=== PATIENT | male | born 1955 | race Caucasian/White ===

== ENCOUNTER 2016-09-23 12:34 | Observation (INO) | payer BC ==
[2016-09-23] MEDS ORDERED: SENNOSIDES 8.6 MG PO PRN (13:41)
[2016-09-23] MEDS ORDERED: Sodium Chloride 0.9% 10 ML Syringe FLUSH PRN (14:01)
[2016-09-23] MEDS ORDERED: Ondansetron 4 MG/2 ML SDV IVPUSH PRN (14:09)
--- NOTE | 2016-09-23 14:18 | PCM.HP ---
H&P History of Present Illness - General Date of Service: 09/23/16 Admit Problem/Dx: Admission Diagnosis/Problem Admission Diagnosis/Problem Weakness Source of Information: Patient, Provider (dr. Piña) - History of Present Illness Initial Comments - Free Text/Narative: the patient is a 60-year-old gentleman with a history of hypertension, diabetes on insulin. The patient has a history of metastatic lung cancer. 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 The patient has been following up with the oncology services at [facility] through. On last evaluation Dr. Deluna discussed further possible treatments with the patient. The patient opted for no further treatment for the cancer. Dr. Deluna felt that the patient expected life expectancy is less than 6 month period The patient has been living independently. Hospice was contemplated but not available at the patient's residence. In the past few weeks the patient has been getting increasingly weak, nauseous, vomiting. Has chronic back and neck pain for which she is taking Tylenol. Trying to avoid oxycodone due to side effects of constipation. The patient has called his primary care physician that he is increasingly weak cannot get up practically unable to move around in his house. He denies abdominal pain no shortness of breath no chest pain. He has minimal oral food or fluid intake. - Related Data Allergies/Adverse Reactions: Allergies Allergy/AdvReac Type Severity Reaction Status Date / Time No Known Allergies Allergy Verified 09/23/16 13:11 Home Medications: Home Meds Losartan [Cozaar] 50 mg PO DAILY 03/26/13 [History] Simvastatin [Zocor] 40 mg PO DAILY 03/26/13 [History] Ondansetron [Zofran ODT] 4 mg PO Q6H 01/19/16 [History] Sennosides [Senna] 8.6 mg PO BID PRN 01/19/16 [History] oxyCODONE HCl [Oxycodone HCl] 5 mg PO Q4H PRN 01/19/16 [History] Acetaminophen [Tylenol Extra Strength] 500 mg PO Q4H PRN 09/23/16 [History] Dexamethasone 4 mg PO BID 09/23/16 [History] Mirtazapine 15 mg PO DAILY 09/23/16 [History] Past Medical History HEENT History: Reports: Impaired Vision Other HEENT History: wears glasses Other Genitourinary History: kidney surgery for cancer Musculoskeletal History: Reports: None Neurological History: Reports: None Psychiatric History: Reports: None Endocrine/Metabolic History: Reports: Diabetes, Type II Hematologic History: Reports: None Immunologic History: Reports: None Oncologic (Cancer) History: Reports: Brain, Other (See Below) Other Oncologic History: 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 Denies: Chest Pain, Edema Gastrointestinal: Denies: Abdominal Pain Genitourinary: Denies: Dysuria Exam - Exam Exam: See Below - Vital Signs Vital Signs: Last Vital Signs Temp 36.4 C 09/23/16 13:35 Pulse 101 H 09/23/16 13:35 Resp 20 09/23/16 13:35 BP 122/91 H 09/23/16 13:35 Pulse Ox 96 09/23/16 13:35 Weight: 87.498 kg - Exam General: Alert, Oriented HEENT: Other (dry mucosa) Neck: Supple Lungs: Clear to Auscultation, Normal Respiratory Effort Cardiovascular: Regular Rate, Regular Rhythm GI/Abdominal Exam: Normal Bowel Sounds, Soft, Non-Tender Back Exam: Normal Inspection Extremities: No Pedal Edema Neuro Extensive - Mental Status: Alert, Oriented x3, Normal Cognition. No: Normal Mood/Affect (irritated) *Q Meaningful Use (ADM) - VTE *Q VTE Criteria *Q: - Stroke *Q Stroke Criteria *Q: - AMI *Q AMI Criteria *Q: - Problem List (1) Lung cancer SNOMED Code(s): 688337393 ICD Code: C34.90 - MALIGNANT NEOPLASM OF UNSP PART OF UNSP BRONCHUS OR LUNG Status: Acute Current Visit: Yes (2) Dehydration SNOMED Code(s): 51499964 ICD Code: E86.0 - DEHYDRATION Status: Acute Current Visit: Yes Problem List Initiated/Reviewed/Updated: Yes Orders Last 24hrs: Active Orders 24 hr Category Date Time Status Admission Status [Patient Status] [ADT] Routine ADT 09/23/16 13:24 Active Antiembolic Devices [RC] PER UNIT ROUTINE Care 09/23/16 14:10 Active Central Line Assessment [RC] 09,21 Care 09/23/16 14:01 Active Communication Order [RC] ROUTINE Care 09/23/16 13:48 Active Glucose [Blood Glucose Check, Bedside] [RC] QIDACANDBED Care 09/23/16 14:07 Active Implanted Port Access [RC] ASDIRECTED Care 09/23/16 13:40 Active Oxygen Therapy [RC] PRN Care 09/23/16 14:09 Active Up With Assistance [RC] ASDIRECTED Care 09/23/16 14:09 Active VTE/DVT Education [RC] PER UNIT ROUTINE Care 09/23/16 14:09 Active Vital Signs [RC] Q4H Care 09/23/16 14:09 Active OT Evaluation and Treatment [CONS] Routine Cons 09/23/16 13:30 Active PT Evaluation and Treatment [CONS] Routine Cons 09/23/16 13:30 Active Regular Diet [DIET] Diet 09/23/16 Dinner Active BASIC METABOLIC PANEL,BMP [CHEM] Routine Lab 09/23/16 13:24 Ordered C DIFFICILE TOXIN BY PCR [MREF] Routine Lab 09/23/16 13:25 Uncollected CBC WITH AUTO DIFF [HEME] Routine Lab 09/23/16 13:25 Ordered HEPATIC FUNCTION PANEL,HFP [CHEM] Routine Lab 09/23/16 13:24 Ordered LACTIC ACID [CHEM] Routine Lab 09/23/16 13:26 Ordered TROPONIN I [CHEM] Routine Lab 09/23/16 13:24 Ordered UA W/MICROSCOPIC [URIN] Routine Lab 09/23/16 14:08 Uncollected Acetaminophen [Tylenol Extra Strength] Med 09/23/16 13:41 Pending 500 mg PO Q4H PRN Dexamethasone Med 09/24/16 09:00 Pending 4 mg PO DAILY Insulin Aspart [NovoLOG] Med 09/23/16 17:00 Ordered See Protocol SUBCUT TIDAC Mirtazapine [Remeron] Med 09/24/16 09:00 Pending 15 mg PO DAILY Ondansetron [Zofran ODT] Med 09/23/16 13:45 Pending 4 mg PO Q6H Ondansetron [Zofran] Med 09/23/16 14:09 Ordered 4 mg IVPUSH Q6H PRN Sennosides [Senna] Med 09/23/16 13:41 Pending 8.6 mg PO BID PRN Sodium Chloride 0.9% [Normal Saline] 1,000 ml Med 09/23/16 14:15 Ordered IV ASDIRECTED Sodium Chloride 0.9% [Saline Flush] Med 09/23/16 14:01 Ordered 10 ml FLUSH ASDIRECTED PRN Zolpidem [Ambien] Med 09/23/16 14:09 Ordered 5 mg PO BEDTIME PRN Sequential Compression Device [OM.PC] Per Unit Routine Oth 09/23/16 14:10 Ordered Resuscitation Status Routine Resus Stat 09/23/16 14:09 Ordered Medication Orders Acetaminophen (Tylenol Extra Strength) 500 mg PO Q4H PRN PRN Reason: Pain or fever Dexamethasone (Dexamethasone) 4 mg PO DAILY [facility] Sodium Chloride (Normal Saline) 1,000 mls @ 125 mls/hr IV ASDIRECTED [facility] Insulin Aspart (Novolog) 0 unit SUBCUT TIDAC [facility] PRN Reason: Protocol Mirtazapine (Remeron) 15 mg PO DAILY [facility] Non-Formulary Medication (Sennosides [Senna]) 8.6 mg PO BID PRN PRN Reason: Constipation Ondansetron HCl (Zofran Odt) 4 mg PO Q6H [facility] Ondansetron HCl (Zofran) 4 mg IVPUSH Q6H PRN PRN Reason: Nausea/Vomiting Sodium Chloride (Saline Flush) 10 ml FLUSH ASDIRECTED PRN PRN Reason: Keep Vein Open Zolpidem Tartrate (Ambien) 5 mg PO BEDTIME PRN PRN Reason: Sleep Assessment/Plan Comment:: the patient presented with a history of advanced lung cancer with metastasis He has opted for no further therapy His strength and ability to take care of himself has been iminishing. his oral intake is minimal the patient appears clinically dehydrated I will obtain further tests including renal function and electrolytes. Check UA for possible infection.Check troponin. Start IV fluid for hydration Access the patient's port further treatment will be based on these results. Diabetes For now hold long-acting insulin Use short acting coverage depending on blood sugars and oral intake Chronic steroid use Continue dexamethasone back pain Treat with Tylenol, minimalize oxycodone use DVT prophylaxis will be subcutaneous heparin
[2016-09-23] MEDS: Sodium Chloride 0.9% 1,000 ML IV SCH ×2 (15:17→23:48)
[2016-09-23] MEDS: Ondansetron 4 MG Tab.DIS PO SCH ×2 (15:22→22:17)
[2016-09-23] MEDS: ACETAMINOPHEN 500 MG PO PRN ×2 (15:57→20:26)
[2016-09-23] MEDS: Insulin Aspart 100 Units/ML 3 ML Pen SUBCUT SCH (17:37)
[2016-09-23] MEDS ORDERED: Dexamethasone 4 MG Tab PO SCH (21:00)
[2016-09-23] MEDS: Zolpidem 5 MG Tab PO PRN (21:17)
[2016-09-23] MEDS ORDERED: oxyCODONE 5 MG Tab PO PRN (23:55)
[2016-09-24] MEDS: ACETAMINOPHEN 500 MG PO PRN ×3 (03:13→20:06)
[2016-09-24] MEDS: Ondansetron 4 MG Tab.DIS PO SCH ×4 (03:13→22:09)
[2016-09-24] MEDS: Morphine 2 MG/ML Syringe IVPUSH PRN ×4 (04:09→15:02)
[2016-09-24] MEDS: Sodium Chloride 0.9% 1,000 ML IV SCH ×3 (07:55→23:54)
[2016-09-24] MEDS: DEXAMETHASONE 4 MG PO SCH (08:16)
[2016-09-24] MEDS: Insulin Aspart 100 Units/ML 3 ML Pen SUBCUT SCH ×3 (08:19→17:22)
[2016-09-24] MEDS ORDERED: Ibuprofen 400 MG Tab PO PRN (10:11)
--- NOTE | 2016-09-24 10:16 | PCM.PN ---
- General Info Date of Service: 09/24/16 Admission Dx/Problem (Free Text): Admission Diagnosis/Problem Admission Diagnosis/Problem Weakness Subjective Update: Has been complaining of moderate to severe back pain. Mostly upper back. Changing position makes it better. No associated upper and lower extremity tingling or numbness. Nausea is better, has been able to eat. No fever, no chills, chest pain, abdominal pain. No shortness of breath. - Review of Systems General: Reports: Weakness - Patient Data Vitals - Most Recent: Last Vital Signs Temp 37.0 C 09/24/16 08:46 Pulse 76 09/24/16 08:46 Resp 20 09/24/16 08:46 BP 134/90 09/24/16 08:46 Pulse Ox 98 09/24/16 08:46 Weight - Most Recent: 87.498 kg I&O - Last 24 Hours: Intake & Output 09/23/16 09/24/16 09/24/16 22:59 06:59 14:59 Intake Total 1010 500 Output Total 500 Balance 1010 0 Lab Results Last 24 Hours: Laboratory Results - last 24 hr 09/23/16 09/23/16 09/23/16 Range/Units 14:18 14:18 14:18 WBC 7.8 (5.0-10.0) 10^3/uL RBC 4.95 (4.6-6.2) 10^6/uL Hgb 14.8 (14.0-18.0) g/dL Hct 43.0 (40.0-54.0) % MCV 86.9 (80-100) fL MCH 29.9 (27.0-34.0) pg MCHC 34.4 (33.0-35.0) g/dL Plt Count 288 (150-450) 10^3/uL Neut % (Auto) 76.2 H (42.2-75.2) % Lymph % (Auto) 11.2 L (20.5-50.1) % Barbour % (Auto) 11.2 H (2-8) % Eos % (Auto) 1.0 (1.0-3.0) % Baso % (Auto) 0.4 (0.0-1.0) % Sodium 133 L (135-145) mmol/L Potassium 4.6 (3.6-5.0) mmol/L Chloride 99 L (101-111) mmol/L Carbon Dioxide 20.0 L (21.0-31.0) mmol/L Anion Gap 18.6 BUN 33 H (7-18) mg/dL Creatinine 1.3 (0.6-1.3) mg/dL Est Cr Clr Drug Dosing 64.67 mL/min Estimated GFR (MDRD) 56 Glucose 142 H (74-105) mg/dL POC Glucose (70-105) mg/dl Lactic Acid 0.9 (0.5-2.2) mmol/L Calcium 9.5 (8.4-10.2) mg/dl Total Bilirubin 2.9 H (0.2-1.0) mg/dL Direct Bilirubin 0.6 H (0.0-0.2) mg/dL Indirect Bilirubin 2.3 AST 29 (10-42) IU/L ALT 57 (10-60) IU/L Alkaline Phosphatase 65 (42-121) IU/L Troponin I 0.02 (0.00-0.02) ng/ml Total Protein 7.2 (6.7-8.2) g/dl Albumin 4.0 (3.2-5.5) g/dl Globulin 3.2 Albumin/Globulin Ratio 1.25 Urine Color (YELLOW) Urine Appearance (CLEAR) Urine pH (5.0-9.0) Ur Specific Davis (1.005-1.030) Urine Protein (NEGATIVE) Urine Glucose (UA) (NEGATIVE) Urine Ketones (NEGATIVE) Urine Occult Blood (NEGATIVE) Urine Nitrite (NEGATIVE) Urine Bilirubin (NEGATIVE) Urine Urobilinogen (0.2-1.0) mg/dL Ur Leukocyte Esterase (NEGATIVE) Urine RBC /HPF Urine WBC (0-5/HPF) /HPF Ur Epithelial Cells /HPF Urine Bacteria (0-FEW/HPF) /HPF Urine Mucus /LPF 09/23/16 09/23/16 09/24/16 Range/Units 16:52 21:05 03:00 WBC (5.0-10.0) 10^3/uL RBC (4.6-6.2) 10^6/uL Hgb (14.0-18.0) g/dL Hct (40.0-54.0) % MCV (80-100) fL MCH (27.0-34.0) pg MCHC (33.0-35.0) g/dL Plt Count (150-450) 10^3/uL Neut % (Auto) (42.2-75.2) % Lymph % (Auto) (20.5-50.1) % Barbour % (Auto) (2-8) % Eos % (Auto) (1.0-3.0) % Baso % (Auto) (0.0-1.0) % Sodium (135-145) mmol/L Potassium (3.6-5.0) mmol/L Chloride (101-111) mmol/L Carbon Dioxide (21.0-31.0) mmol/L Anion Gap BUN (7-18) mg/dL Creatinine (0.6-1.3) mg/dL Est Cr Clr Drug Dosing mL/min Estimated GFR (MDRD) Glucose (74-105) mg/dL POC Glucose 126 H 208 H (70-105) mg/dl Lactic Acid (0.5-2.2) mmol/L Calcium (8.4-10.2) mg/dl Total Bilirubin (0.2-1.0) mg/dL Direct Bilirubin (0.0-0.2) mg/dL Indirect Bilirubin AST (10-42) IU/L ALT (10-60) IU/L Alkaline Phosphatase (42-121) IU/L Troponin I (0.00-0.02) ng/ml Total Protein (6.7-8.2) g/dl Albumin (3.2-5.5) g/dl Globulin Albumin/Globulin Ratio Urine Color Yellow (YELLOW) Urine Appearance Clear (CLEAR) Urine pH 5.5 (5.0-9.0) Ur Specific Davis 1.015 (1.005-1.030) Urine Protein Negative (NEGATIVE) Urine Glucose (UA) Negative (NEGATIVE) Urine Ketones Negative (NEGATIVE) Urine Occult Blood Negative (NEGATIVE) Urine Nitrite Negative (NEGATIVE) Urine Bilirubin Negative (NEGATIVE) Urine Urobilinogen 1.0 (0.2-1.0) mg/dL Ur Leukocyte Esterase Negative (NEGATIVE) Urine RBC 0-5 /HPF Urine WBC 0-5 (0-5/HPF) /HPF Ur Epithelial Cells Rare /HPF Urine Bacteria Rare (0-FEW/HPF) /HPF Urine Mucus Rare /LPF 09/24/16 Range/Units 08:00 WBC (5.0-10.0) 10^3/uL RBC (4.6-6.2) 10^6/uL Hgb (14.0-18.0) g/dL Hct (40.0-54.0) % MCV (80-100) fL MCH (27.0-34.0) pg MCHC (33.0-35.0) g/dL Plt Count (150-450) 10^3/uL Neut % (Auto) (42.2-75.2) % Lymph % (Auto) (20.5-50.1) % Barbour % (Auto) (2-8) % Eos % (Auto) (1.0-3.0) % Baso % (Auto) (0.0-1.0) % Sodium (135-145) mmol/L Potassium (3.6-5.0) mmol/L Chloride (101-111) mmol/L Carbon Dioxide (21.0-31.0) mmol/L Anion Gap BUN (7-18) mg/dL Creatinine (0.6-1.3) mg/dL Est Cr Clr Drug Dosing mL/min Estimated GFR (MDRD) Glucose (74-105) mg/dL POC Glucose 171 H (70-105) mg/dl Lactic Acid (0.5-2.2) mmol/L Calcium (8.4-10.2) mg/dl Total Bilirubin (0.2-1.0) mg/dL Direct Bilirubin (0.0-0.2) mg/dL Indirect Bilirubin AST (10-42) IU/L ALT (10-60) IU/L Alkaline Phosphatase (42-121) IU/L Troponin I (0.00-0.02) ng/ml Total Protein (6.7-8.2) g/dl Albumin (3.2-5.5) g/dl Globulin Albumin/Globulin Ratio Urine Color (YELLOW) Urine Appearance (CLEAR) Urine pH (5.0-9.0) Ur Specific Davis (1.005-1.030) Urine Protein (NEGATIVE) Urine Glucose (UA) (NEGATIVE) Urine Ketones (NEGATIVE) Urine Occult Blood (NEGATIVE) Urine Nitrite (NEGATIVE) Urine Bilirubin (NEGATIVE) Urine Urobilinogen (0.2-1.0) mg/dL Ur Leukocyte Esterase (NEGATIVE) Urine RBC /HPF Urine WBC (0-5/HPF) /HPF Ur Epithelial Cells /HPF Urine Bacteria (0-FEW/HPF) /HPF Urine Mucus /LPF Med Orders - Current: Current Medications Acetaminophen (Tylenol Extra Strength) 500 mg PO Q4H PRN PRN Reason: Pain or fever Last Admin: 09/24/16 09:13 Dose: 500 mg Dexamethasone (Dexamethasone) 4 mg PO WITHBREAKFAST [facility] Last Admin: 09/24/16 08:16 Dose: 4 mg Sodium Chloride (Normal Saline) 1,000 mls @ 125 mls/hr IV ASDIRECTED [facility] Last Admin: 09/24/16 07:55 Dose: 125 mls/hr Ibuprofen (Motrin) 400 mg PO Q6H PRN PRN Reason: Pain Insulin Aspart (Novolog) 0 unit SUBCUT TIDAC [facility] PRN Reason: Protocol Last Admin: 09/24/16 08:19 Dose: 2 unit Lactulose (Cephulac) 20 gm PO BID PRN PRN Reason: Constipation Mirtazapine (Remeron) 15 mg PO BEDTIME [facility] Morphine Sulfate (Morphine) 1 mg IVPUSH Q2H PRN PRN Reason: Pain Last Admin: 09/24/16 08:10 Dose: 1 mg Non-Formulary Medication (Sennosides [Senna]) 8.6 mg PO BID [facility] Ondansetron HCl (Zofran Odt) 4 mg PO Q6H [facility] Last Admin: 09/24/16 09:30 Dose: 4 mg Ondansetron HCl (Zofran) 4 mg IVPUSH Q6H PRN PRN Reason: Nausea/Vomiting Polyethylene Glycol (Miralax) 17 gm PO DAILY [facility] Sodium Chloride (Saline Flush) 10 ml FLUSH ASDIRECTED PRN PRN Reason: Keep Vein Open Tramadol HCl (Ultram) 50 mg PO Q6H PRN PRN Reason: mod to severe pain Zolpidem Tartrate (Ambien) 5 mg PO BEDTIME PRN PRN Reason: Sleep Last Admin: 09/23/16 21:17 Dose: 5 mg Discontinued Medications Dexamethasone (Dexamethasone) 4 mg PO BID [facility] Patients Own Med (Sennosides [Senna] 8.6 Mg) 8.6 mg PO BID PRN PRN Reason: Constipation Oxycodone HCl (Oxycodone) 5 mg PO Q6H PRN PRN Reason: Pain Last Admin: 09/24/16 00:18 Dose: 5 mg - Exam General: Alert, Oriented Neck: Supple Lungs: Clear to Auscultation, Normal Respiratory Effort Cardiovascular: Regular Rate, Regular Rhythm Extremities: Normal Inspection - Problem List & Annotations (1) Lung cancer SNOMED Code(s): 508922085 Code(s): C34.90 - MALIGNANT NEOPLASM OF UNSP PART OF UNSP BRONCHUS OR LUNG Status: Acute Current Visit: Yes (2) Dehydration SNOMED Code(s): 91248947 Code(s): E86.0 - DEHYDRATION Status: Acute Current Visit: Yes - Problem List Review Problem List Initiated/Reviewed/Updated: Yes - My Orders Last 24 Hours: My Active Orders 09/23/16 13:24 Admission Status [Patient Status] [ADT] Routine 09/23/16 13:30 OT Evaluation and Treatment [CONS] Routine PT Evaluation and Treatment [CONS] Routine 09/23/16 13:40 Implanted Port Access [RC] ASDIRECTED 09/23/16 13:41 Acetaminophen [Tylenol Extra Strength] 500 mg PO Q4H PRN 09/23/16 13:48 Communication Order [RC] 08,09/23/16 14:01 Central Line Assessment [RC] , Sodium Chloride 0.9% [Saline Flush] 10 ml FLUSH ASDIRECTED PRN 09/23/16 14:07 Glucose [Blood Glucose Check, Bedside] [RC] QIDACANDBED 09/23/16 14:09 Oxygen Therapy [RC] PRN Up With Assistance [RC] ASDIRECTED VTE/DVT Education [RC] PER UNIT ROUTINE Vital Signs [RC] Q4H Ondansetron [Zofran] 4 mg IVPUSH Q6H PRN Zolpidem [Ambien] 5 mg PO BEDTIME PRN Resuscitation Status Routine 09/23/16 14:10 Antiembolic Devices [RC] PER UNIT ROUTINE Sequential Compression Device [OM.PC] Per Unit Routine 09/23/16 14:15 Sodium Chloride 0.9% [Normal Saline] 1,000 ml IV ASDIRECTED 09/23/16 16:00 Ondansetron [Zofran ODT] 4 mg PO Q6H 09/23/16 17:00 Insulin Aspart [NovoLOG] See Protocol SUBCUT TIDAC 09/23/16 19:33 Cooling Warming Measures [RC] ASDIRECTED K Pad [Heat Therapy] [OM.PC] Routine 09/23/16 Dinner Regular Diet [DIET] 09/24/16 03:45 Morphine 1 mg IVPUSH Q2H PRN 09/24/16 08:00 Dexamethasone 4 mg PO WITHBREAKFAST 09/24/16 10:10 traMADol [Ultram] 50 mg PO Q6H PRN 09/24/16 10:11 Ibuprofen [Motrin] 400 mg PO Q6H PRN 09/24/16 10:12 Lactulose [Cephulac] 20 gm PO BID PRN 09/24/16 10:15 Polyethylene Glycol 3350 [MiraLAX] 17 gm PO DAILY 09/24/16 21:00 Mirtazapine [Remeron] 15 mg PO BEDTIME Sennosides [Senna] 8.6 mg PO BID - Plan Plan:: the patient presented with a history of advanced lung cancer with metastasis He has opted for no further therapy His strength and ability to take care of himself has been diminishing. his oral intake has minimal Has been receiving IV hydration. Nausea is better. Has better oral intake. Encourage physical activity. Discussed with the patient about the discharge plans. he might not be able to live independently. Diabetes For now hold long-acting insulin Use short acting coverage depending on blood sugars and oral intake Chronic steroid use Continue dexamethasone back pain Treat with Tylenol, minimalize oxycodone use Try Motrin, tramadol Stool softeners for prevention of constipation DVT prophylaxis will be subcutaneous heparin
[2016-09-24] MEDS: Lactulose Soln 10 GM/15 ML 30 ML UD Cup PO PRN (11:38)
[2016-09-24] MEDS: Polyethylene Glycol 3350 Powder 17 GM Packet PO SCH (11:44)
[2016-09-24] MEDS: traMADol 50 MG Tab PO PRN (14:32)
[2016-09-24] MEDS: MIRTAZAPINE 15 MG PO SCH (20:54)
[2016-09-24] MEDS: SENNA PO SCH (22:09)
[2016-09-24] MEDS: Zolpidem 5 MG Tab PO PRN (23:51)
[2016-09-25] MEDS: ACETAMINOPHEN 500 MG PO PRN ×4 (04:09→18:47)
[2016-09-25] MEDS: Ondansetron 4 MG Tab.DIS PO SCH ×4 (04:10→21:47)
[2016-09-25] MEDS: SENNA PO SCH ×2 (08:51→21:50)
[2016-09-25] MEDS: DEXAMETHASONE 4 MG PO SCH (08:52)
[2016-09-25] MEDS: Insulin Aspart 100 Units/ML 3 ML Pen SUBCUT SCH ×3 (08:53→17:21)
[2016-09-25] MEDS: Polyethylene Glycol 3350 Powder 17 GM Packet PO SCH (08:53)
--- NOTE | 2016-09-25 11:12 | PCM.PN ---
- General Info Date of Service: 09/25/16 Admission Dx/Problem (Free Text): Admission Diagnosis/Problem Admission Diagnosis/Problem Weakness Subjective Update: Has been complaining of moderate to severe back pain. Mostly upper back, alittle to the left side. Changing position makes it better. No associated upper and lower extremity tingling or numbness. Does not want to take other pain medications than Tylenol. Nausea is better, has been able to eat. No fever, no chills, chest pain, abdominal pain. No shortness of breath. Functional Status: Reports: Tolerating Diet - Review of Systems General: Reports: Weakness. Denies: Fever Cardiovascular: Denies: Chest Pain Gastrointestinal: Denies: Abdominal Pain Genitourinary: Denies: Dysuria - Patient Data Vitals - Most Recent: Last Vital Signs Temp 37.2 C 09/25/16 08:34 Pulse 88 09/25/16 08:34 Resp 20 09/25/16 08:34 BP 138/77 09/25/16 08:34 Pulse Ox 98 09/25/16 08:34 Weight - Most Recent: 87.498 kg I&O - Last 24 Hours: Intake & Output 09/24/16 09/25/16 09/25/16 22:59 06:59 14:59 Intake Total 1200 1514 Balance 1200 1514 Lab Results Last 24 Hours: Laboratory Results - last 24 hr 09/24/16 09/24/16 09/24/16 Range/Units 11:16 16:43 20:52 POC Glucose 194 H 213 H 150 H (70-105) mg/dl 09/25/16 Range/Units 07:58 POC Glucose 129 H (70-105) mg/dl Med Orders - Current: Current Medications Acetaminophen (Tylenol Extra Strength) 500 mg PO Q4H PRN PRN Reason: Pain or fever Last Admin: 09/25/16 08:52 Dose: 500 mg Dexamethasone (Dexamethasone) 4 mg PO WITHBREAKFAST [facility] Last Admin: 09/25/16 08:52 Dose: 4 mg Heparin Sodium (Porcine) (Heparin Sodium) 5,000 units SUBCUT Q8HR [facility] Ibuprofen (Motrin) 400 mg PO Q6H PRN PRN Reason: Pain Last Admin: 09/24/16 11:38 Dose: 400 mg Insulin Aspart (Novolog) 0 unit SUBCUT TIDAC [facility] PRN Reason: Protocol Last Admin: 09/25/16 08:53 Dose: Not Given Lactulose (Cephulac) 20 gm PO BID PRN PRN Reason: Constipation Last Admin: 09/24/16 11:38 Dose: 20 gm Mirtazapine (Remeron) 15 mg PO BEDTIME [facility] Last Admin: 09/24/16 20:54 Dose: 15 mg Morphine Sulfate (Morphine) 1 mg IVPUSH Q2H PRN PRN Reason: Pain Last Admin: 09/24/16 15:02 Dose: 1 mg Senna Own Med 8.6 mg PO BID [facility] Last Admin: 09/25/16 08:51 Dose: 8.6 mg Ondansetron HCl (Zofran Odt) 4 mg PO Q6H [facility] Last Admin: 09/25/16 04:10 Dose: 4 mg Ondansetron HCl (Zofran) 4 mg IVPUSH Q6H PRN PRN Reason: Nausea/Vomiting Polyethylene Glycol (Miralax) 17 gm PO DAILY [facility] Last Admin: 09/25/16 08:53 Dose: 17 gm Sodium Chloride (Saline Flush) 10 ml FLUSH ASDIRECTED PRN PRN Reason: Keep Vein Open Tramadol HCl (Ultram) 50 mg PO Q6H PRN PRN Reason: mod to severe pain Last Admin: 09/24/16 14:32 Dose: 50 mg Zolpidem Tartrate (Ambien) 5 mg PO BEDTIME PRN PRN Reason: Sleep Last Admin: 09/24/16 23:51 Dose: 5 mg Discontinued Medications Dexamethasone (Dexamethasone) 4 mg PO BID [facility] Sodium Chloride (Normal Saline) 1,000 mls @ 125 mls/hr IV ASDIRECTED [facility] Last Admin: 09/24/16 23:54 Dose: 125 mls/hr Patients Own Med (Sennosides [Senna] 8.6 Mg) 8.6 mg PO BID PRN PRN Reason: Constipation Last Admin: 09/24/16 20:54 Dose: 8.6 mg Oxycodone HCl (Oxycodone) 5 mg PO Q6H PRN PRN Reason: Pain Last Admin: 09/24/16 00:18 Dose: 5 mg - Exam General: Alert, Oriented Neck: Supple Lungs: Clear to Auscultation, Normal Respiratory Effort Cardiovascular: Regular Rate, Regular Rhythm Extremities: No Pedal Edema Skin: Warm, Dry Neurological: No New Focal Deficit Psy/Mental Status: Alert, Normal Affect, Normal Mood - Problem List & Annotations (1) Lung cancer SNOMED Code(s): 034307434 Code(s): C34.90 - MALIGNANT NEOPLASM OF UNSP PART OF UNSP BRONCHUS OR LUNG Status: Acute Current Visit: Yes (2) Dehydration SNOMED Code(s): 49460678 Code(s): E86.0 - DEHYDRATION Status: Acute Current Visit: Yes - Problem List Review Problem List Initiated/Reviewed/Updated: Yes - My Orders Last 24 Hours: My Active Orders 09/24/16 10:10 traMADol [Ultram] 50 mg PO Q6H PRN 09/24/16 10:11 Ibuprofen [Motrin] 400 mg PO Q6H PRN 09/24/16 10:12 Lactulose [Cephulac] 20 gm PO BID PRN 09/24/16 10:15 Polyethylene Glycol 3350 [MiraLAX] 17 gm PO DAILY 09/24/16 21:00 Mirtazapine [Remeron] 15 mg PO BEDTIME Sennosides [Senna] 8.6 mg PO BID 09/25/16 08:56 Antiembolic Devices [RC] PER UNIT ROUTINE MO[facility] Hose [Antiembolic Hose] [OM.PC] Routine 09/25/16 14:00 Heparin Sodium 5,000 units SUBCUT Q8HR - Plan Plan:: the patient presented with a history of advanced lung cancer with metastasis He has opted for no further therapy His strength and ability to take care of himself has been diminishing. his oral intake was minimal at home, now improved He is also able to get out of bed and go to the bathroom back and forth alone. Encourage further activity today Has been receiving IV hydration. Nausea is better. Has better oral intake. Stop IV hydration Encourage physical activity. Discussed with the patient about the discharge plans. he might not be able to live independently. Diabetes Reasonably controlled without baseline insulin For now hold long-acting insulin Use short acting coverage depending on blood sugars and oral intake Chronic steroid use Continue dexamethasone back pain Treat with Tylenol, minimalize narcotic use Try Motrin Stool softeners for prevention of constipation DVT prophylaxis will be subcutaneous heparin
[2016-09-25] MEDS ORDERED: Sodium Chloride 0.9% 10 ML Syringe FLUSH PRN (11:44)
[2016-09-25] MEDS: Heparin Sodium 5,000 Units/ML Vial SUBCUT SCH ×2 (14:58→21:47)
[2016-09-25] MEDS ORDERED: guaiFENesin 100 MG/5 ML Soln 5 ML UD Cup PO PRN (15:58)
[2016-09-25] MEDS: Lactulose Soln 10 GM/15 ML 30 ML UD Cup PO PRN (18:48)
[2016-09-25] MEDS: MIRTAZAPINE 15 MG PO SCH (21:47)
[2016-09-25] MEDS: Sodium Chloride 0.9% 10 ML Syringe FLUSH SCH (21:48)
[2016-09-25] MEDS: traMADol 50 MG Tab PO PRN (21:56)
[2016-09-25] MEDS: Zolpidem 5 MG Tab PO PRN (22:11)
[2016-09-26] MEDS: Ondansetron 4 MG Tab.DIS PO SCH ×3 (04:10→15:46)
[2016-09-26] MEDS: Heparin Sodium 5,000 Units/ML Vial SUBCUT SCH ×2 (06:43→15:47)
[2016-09-26] MEDS: traMADol 50 MG Tab PO PRN (06:50)
[2016-09-26] MEDS: Insulin Aspart 100 Units/ML 3 ML Pen SUBCUT SCH ×3 (08:27→17:07)
[2016-09-26] MEDS: Polyethylene Glycol 3350 Powder 17 GM Packet PO SCH (08:37)
[2016-09-26] MEDS: DEXAMETHASONE 4 MG PO SCH (08:38)
[2016-09-26] MEDS: SENNA PO SCH (08:39)
[2016-09-26] MEDS: ACETAMINOPHEN 500 MG PO PRN ×3 (08:40→16:42)
[2016-09-26] MEDS: Sodium Chloride 0.9% 10 ML Syringe FLUSH SCH ×2 (11:27→15:47)
[2016-09-26 11:40] VITALS: BP 136/90
--- NOTE | 2016-09-26 12:42 | PCM.DCSUM1 ---
Discharge Summary - Hospital Course Free Text/Narrative:: the patient presented with a history of advanced lung cancer with metastasis He has opted for no further therapy His strength and ability to take care of himself has been diminishing. his oral intake was minimal at home, now improved He is also able to get out of bed and go to the bathroom back and forth alone. Encourage further activity today acute dehydration Has been receiving IV hydration. Nausea is better. Has better oral intake. Encourage physical activity. Diabetes Reasonably controlled without baseline insulin For now hold long-acting insulin Chronic steroid use Continue dexamethasone back pain Treat with Tylenol, minimalize narcotic use Try Motrin Stool softeners for prevention of constipation - Discharge Data Discharge Date: 09/26/16 Discharge Disposition: Home, Self-Care 01 Condition: Good - Discharge Diagnosis/Problem(s) (1) Lung cancer SNOMED Code(s): 094126786 ICD Code: C34.90 - MALIGNANT NEOPLASM OF UNSP PART OF UNSP BRONCHUS OR LUNG Status: Acute Current Visit: Yes (2) Dehydration SNOMED Code(s): 29337982 ICD Code: E86.0 - DEHYDRATION Status: Acute Current Visit: Yes - Patient Summary/Data Consults: Consultations 09/23/16 13:30 OT Evaluation and Treatment [CONS] Routine PT Evaluation and Treatment [CONS] Routine - Patient Instructions Diet: Usual Diet as Tolerated Activity: As Tolerated - Discharge Plan Home Medications: Home Meds Losartan [Cozaar] 50 mg PO DAILY 03/26/13 [History] Ondansetron [Zofran ODT] 4 mg PO Q6H 01/19/16 [History] Sennosides [Senna] 8.6 mg PO BID PRN 01/19/16 [History] oxyCODONE HCl [Oxycodone HCl] 5 mg PO Q4H PRN 01/19/16 [History] Acetaminophen [Tylenol Extra Strength] 500 mg PO Q4H PRN 09/23/16 [History] Mirtazapine 15 mg PO DAILY 09/23/16 [History] Dexamethasone 4 mg PO DAILY #0 09/26/16 [Rx] Patient Handouts: High-Fiber Diet, Constipation, Adult, [id number], Dehydration, Adult, [id number], Lung Cancer Referrals: Jer Piña MD [Primary Care Provider] - (in 3-5 days) - Review of Systems General: Reports: Weakness (improved) Pulmonary: Denies: Shortness of Breath Cardiovascular: Denies: Chest Pain Musculoskeletal: Reports: Back Pain Neurological: Denies: Confusion Psychiatric: Denies: Confusion - Patient Data Vitals - Most Recent: Last Vital Signs Temp 36.9 C 09/26/16 11:39 Pulse 83 09/26/16 11:39 Resp 20 09/26/16 11:39 BP 136/90 09/26/16 11:39 Pulse Ox 95 09/26/16 11:39 Weight - Most Recent: 87.498 kg I&O - Last 24 hours: Intake & Output 09/25/16 09/26/16 09/26/16 22:59 06:59 14:59 Intake Total 320 Balance 320 Lab Results - Last 24 hrs: Laboratory Results - last 24 hr 09/25/16 09/25/16 09/26/16 Range/Units 17:00 20:56 08:14 POC Glucose 209 H 147 H 126 H (70-105) mg/dl 09/26/16 Range/Units 11:26 POC Glucose 187 H (70-105) mg/dl Med Orders - Current: Current Medications Acetaminophen (Tylenol Extra Strength) 500 mg PO Q4H PRN PRN Reason: Pain or fever Last Admin: 09/26/16 12:33 Dose: 500 mg Dexamethasone (Dexamethasone) 4 mg PO WITHBREAKFAST [facility] Last Admin: 09/26/16 08:38 Dose: 4 mg Guaifenesin (Robitussin) 200 mg PO Q6H PRN PRN Reason: Cough Last Admin: 09/25/16 18:49 Dose: 200 mg Heparin Sodium (Porcine) (Heparin Sodium) 5,000 units SUBCUT Q8HR [facility] Last Admin: 09/26/16 06:43 Dose: 5,000 units Ibuprofen (Motrin) 400 mg PO Q6H PRN PRN Reason: Pain Last Admin: 09/24/16 11:38 Dose: 400 mg Insulin Aspart (Novolog) 0 unit SUBCUT TIDAC [facility] PRN Reason: Protocol Last Admin: 09/26/16 12:32 Dose: 2 unit Lactulose (Cephulac) 20 gm PO BID PRN PRN Reason: Constipation Last Admin: 09/25/16 18:48 Dose: 20 gm Mirtazapine (Remeron) 15 mg PO BEDTIME [facility] Last Admin: 09/25/16 21:47 Dose: 15 mg Morphine Sulfate (Morphine) 1 mg IVPUSH Q2H PRN PRN Reason: Pain Last Admin: 09/24/16 15:02 Dose: 1 mg Senna Own Med 8.6 mg PO BID [facility] Last Admin: 09/26/16 08:39 Dose: 8.6 mg Ondansetron HCl (Zofran Odt) 4 mg PO Q6H [facility] Last Admin: 09/26/16 11:27 Dose: 4 mg Ondansetron HCl (Zofran) 4 mg IVPUSH Q6H PRN PRN Reason: Nausea/Vomiting Polyethylene Glycol (Miralax) 17 gm PO DAILY [facility] Last Admin: 09/26/16 08:37 Dose: 17 gm Sodium Chloride (Saline Flush) 10 ml FLUSH BID [facility] Last Admin: 09/26/16 11:27 Dose: 10 ml Sodium Chloride (Saline Flush) 10 ml FLUSH ASDIRECTED PRN PRN Reason: Keep Vein Open Tramadol HCl (Ultram) 50 mg PO Q6H PRN PRN Reason: mod to severe pain Last Admin: 09/26/16 06:50 Dose: 50 mg Zolpidem Tartrate (Ambien) 5 mg PO BEDTIME PRN PRN Reason: Sleep Last Admin: 09/25/16 22:11 Dose: 5 mg Discontinued Medications Dexamethasone (Dexamethasone) 4 mg PO BID [facility] Sodium Chloride (Normal Saline) 1,000 mls @ 125 mls/hr IV ASDIRECTED [facility] Last Admin: 09/24/16 23:54 Dose: 125 mls/hr Patients Own Med (Sennosides [Senna] 8.6 Mg) 8.6 mg PO BID PRN PRN Reason: Constipation Last Admin: 09/24/16 20:54 Dose: 8.6 mg Oxycodone HCl (Oxycodone) 5 mg PO Q6H PRN PRN Reason: Pain Last Admin: 09/24/16 00:18 Dose: 5 mg Sodium Chloride (Saline Flush) 10 ml FLUSH ASDIRECTED PRN PRN Reason: Keep Vein Open - Exam General: Reports: Alert, Oriented Neck: Reports: Supple Lungs: Reports: Clear to Auscultation, Normal Respiratory Effort Cardiovascular: Reports: Regular Rate, Regular Rhythm Extremities: No Pedal Edema Skin: Reports: Warm, Dry Neurological: Reports: No New Focal Deficit Psy/Mental Status: Reports: Alert *Q Meaningful Use (DIS) - VTE *Q VTE Criteria *Q: - Stroke *Q Stroke Criteria *Q: - AMI *Q AMI Criteria *Q:
== END 2016-09-26 17:00 | disposition home or self-care (01) ==
LOC: DL.MS 13:24 → PREINTOOBSV 13:33
PROVIDERS: ADMIT Internal Medicine; ATTEND Internal Medicine
DX: C34.90 Malignant neoplasm of unspecified part of unspecified bronchus or lung (principal); E86.0 Dehydration; E11.9 Type 2 diabetes mellitus without complications; Z79.84 Long term (current) use of oral hypoglycemic drugs; Z79.899 Other long term (current) drug therapy
CPT/HCPCS: 36415; 80048; 80076; 81001; 82962; 83605; 84484; 85025; A9270; J1642; J1644; J1815; J2270; J7030; J7050; J8540; 96361; 96372; 96374; 96376; G0378; G0379

== ENCOUNTER 2016-10-04 14:44 | Inpatient (IN) | payer BC ==
[2016-10-04] MEDS ORDERED: Sodium Chloride 0.9% 1,000 ML IV ONE (15:13)
[2016-10-04] MEDS ORDERED: Ondansetron 4 MG/2 ML SDV IV ONE ×2 (15:18→20:15)
--- NOTE | 2016-10-04 15:26 | EDM.PDOC ---
ED HPI GENERAL MEDICAL PROBLEM - General Stated Complaint: dehydrated. Time Seen by Provider: 10/04/16 15:15 Source of Information: Reports: Patient History Limitations: Reports: No Limitations - History of Present Illness INITIAL COMMENTS - FREE TEXT/NARRATIVE: This 61 yo male patient report to the ED due to continued feelings of weakness. The patient reports he has not been able to eat or drink in about 1 week. The patient reports every time he eats he gets nauseated and vomits. The patient reports he has noticed increased abdominal pain over the past 2 days. The patient has a history of cancer that has metastasized "everywhere". The patient has been staying at home with family. The patient was being treated by Dr. Deluna for cancer, but all treatments have been discontinued. The patient reports he as less than 6 months of life expectancy. Onset: Gradual Duration: Day(s):, Constant, Getting Worse Location: Reports: Abdomen (pain), Generalized (weakness) Quality: Reports: Ache, Dull Severity: Severe Improves with: Reports: None Worsens with: Reports: None Associated Symptoms: Reports: Nausea/Vomiting, Weakness, Other (abdominal pain) Upper Abdominal Pain Score (Numeric/FACES): 5 - Related Data Allergies Allergy/AdvReac Type Severity Reaction Status Date / Time No Known Allergies Allergy Verified 10/04/16 15:04 Home Meds: Home Meds Losartan [Cozaar] 50 mg PO DAILY 03/26/13 [History] Sennosides [Senna] 8.6 mg PO BID PRN 01/19/16 [History] oxyCODONE HCl [Oxycodone HCl] 5 mg PO Q4H PRN 01/19/16 [History] Acetaminophen [Tylenol Extra Strength] 500 mg PO Q4H PRN 09/23/16 [History] Mirtazapine 15 mg PO DAILY 09/23/16 [History] Dexamethasone 4 mg PO DAILY #0 09/26/16 [Rx] Ondansetron [Zofran ODT] 4 mg PO Q6H #30 tab.dis 09/26/16 [Rx] Past Medical History HEENT History: Reports: Impaired Vision Other HEENT History: wears glasses Cardiovascular History: Reports: None Gastrointestinal History: Reports: None Other Genitourinary History: kidney surgery for cancer Musculoskeletal History: Reports: None Neurological History: Reports: None Psychiatric History: Reports: None Endocrine/Metabolic History: Reports: Diabetes, Type II Hematologic History: Reports: None Immunologic History: Reports: None Oncologic (Cancer) History: Reports: Brain, Other (See Below) Other Oncologic History: 2 cancerous brain toumors removed 01/11/16 Dermatologic History: Reports: None - Infectious Disease History Infectious Disease History: Reports: None - Past Surgical History HEENT Surgical History: Reports: None Cardiovascular Surgical History: Reports: None GI Surgical History: Reports: Colonoscopy Neurological Surgical History: Reports: Other (See Below) Other Neurological Surgeries/Procedures: tumor removal from brain Musculoskeletal Surgical History: Reports: Other (See Below) Other Musculoskeletal Surgeries/Procedures:: knees after an accident at 14years of age Oncologic Surgical History: Reports: Other (See Below) Other Oncologic Surgeries/Procedures: cancerous brain tumors removed 01/11/16 Dermatological Surgical History: Reports: None Social & Family History - Family History Family Medical History: Noncontributory - Tobacco Use Smoking Status *Q: Never Smoker Years of Tobacco use: 50 Used Tobacco, but Quit: Yes Month Tobacco Last Used: december Second Hand Smoke Exposure: Yes - Caffeine Use Caffeine Use: Reports: Coffee - Alcohol Use Days Per Week of Alcohol Use: 0 - Recreational Drug Use Recreational Drug Use: No ED ROS GENERAL - Review of Systems Review Of Systems: ROS reveals no pertinent complaints other than HPI. ED EXAM, GENERAL - Physical Exam Exam: See Below Exam Limited By: No Limitations General Appearance: Alert, WD/WN, Moderate Distress, Thin Eye Exam: Bilateral Eye: EOMI, Normal Inspection, PERRL Ears: Normal External Exam, Normal Canal, Hearing Grossly Normal, Normal TMs Nose: Normal Inspection, Normal Mucosa, No Blood Throat/Mouth: Normal Inspection, Normal Lips, Normal Teeth, Normal Gums, Normal Oropharynx, Normal Voice, No Airway Compromise Head: Atraumatic, Normocephalic Neck: Normal Inspection, Supple, Non-Tender, Full Range of Motion Respiratory/Chest: No Respiratory Distress, Lungs Clear, Normal Breath Sounds, No Accessory Muscle Use, Chest Non-Tender Cardiovascular: Normal Peripheral Pulses, Regular Rate, Rhythm, No Edema, No Gallop, No JVD, No Murmur, No Rub GI/Abdominal: Normal Bowel Sounds, Tender (diffuse upper abdomen) (Male) Exam: Deferred Rectal (Males) Exam: Deferred Back Exam: Normal Inspection, Full Range of Motion, NT Extremities: Normal Inspection, Normal Range of Motion, Non-Tender, Normal Capillary Refill, No Pedal Edema Neurological: Alert, Oriented, CN II-XII Intact, Normal Cognition Psychiatric: Normal Affect, Depressed Mood Skin Exam: Warm, Dry, Intact, No Rash, Jaundice Lymphatic: No Adenopathy Course - Vital Signs Last Recorded V/S: Last Vital Signs Temp 35.8 C 10/04/16 15:03 Pulse 96 10/04/16 15:03 Resp 22 H 10/04/16 15:03 BP 109/86 10/04/16 15:03 Pulse Ox 97 10/04/16 15:03 - Orders/Labs/Meds Orders: Active Orders 24 hr Category Date Time Status UA W/MICROSCOPIC [URIN] Stat Lab 10/04/16 15:13 Uncollected Labs: Laboratory Tests 10/04/16 10/04/16 10/04/16 Range/Units 15:30 15:30 15:30 WBC 8.0 (5.0-10.0) 10^3/uL RBC 5.15 (4.6-6.2) 10^6/uL Hgb 15.6 (14.0-18.0) g/dL Hct 45.9 (40.0-54.0) % MCV 89.1 (80-100) fL MCH 30.3 (27.0-34.0) pg MCHC 34.0 (33.0-35.0) g/dL Plt Count 236 (150-450) 10^3/uL Neut % (Auto) 90.3 H (42.2-75.2) % Lymph % (Auto) 5.0 L (20.5-50.1) % Gem % (Auto) 4.4 (2-8) % Eos % (Auto) 0.1 L (1.0-3.0) % Baso % (Auto) 0.2 (0.0-1.0) % Sodium 133 L (135-145) mmol/L Potassium 5.2 H (3.6-5.0) mmol/L Chloride 96 L (101-111) mmol/L Carbon Dioxide 22.0 (21.0-31.0) mmol/L Anion Gap 20.2 BUN 34 H (7-18) mg/dL Creatinine 1.7 H (0.6-1.3) mg/dL Est Cr Clr Drug Dosing 48.88 mL/min Estimated GFR (MDRD) 41 BUN/Creatinine Ratio 20.00 Glucose 181 H (74-105) mg/dL Calcium 9.6 (8.4-10.2) mg/dl Magnesium 2.3 (1.8-2.5) mg/dL Total Bilirubin 6.8 H (0.2-1.0) mg/dL AST 105 H (10-42) IU/L ALT 342 H (10-60) IU/L Alkaline Phosphatase 127 H (42-121) IU/L Total Protein 7.5 (6.7-8.2) g/dl Albumin 3.9 (3.2-5.5) g/dl Globulin 3.6 Albumin/Globulin Ratio 1.08 Amylase 34 (28-100) U/L Lipase 35 (22-51) U/L Meds: Medications Discontinued Medications Generic Name Dose Route Start Last Admin Trade Name Freq PRN Reason Stop Dose Admin Sodium Chloride 1,000 mls @ 999 mls/hr 10/04/16 15:13 10/04/16 15:49 Normal Saline IV 10/04/16 16:13 999 mls/hr .BOLUS ONE Administration Ondansetron HCl 4 mg 10/04/16 15:18 10/04/16 15:50 Zofran IV 10/04/16 15:19 4 mg ONETIME ONE Administration - Re-Assessments/Exams Free Text/Narrative Re-Assessment/Exam: 10/04/16 16:[address] demonstrates mets to the liver with no evidence of bowel obstruction. Departure - Departure Time of Disposition: 18:52 Disposition: Admitted As Inpatient 64 Condition: Poor Clinical Impression: Cancer Abdominal pain Qualifiers: Abdominal location: generalized Qualified Code(s): R10.84 - Generalized abdominal pain Nausea & vomiting Qualifiers: Vomiting type: unspecified Vomiting Intractability: intractable Qualified Code( s): R11.2 - Nausea with vomiting, unspecified - Discharge Information Care Plan Goals: Discussed the history, examination, lab and CT results with Dr. Burgos. Dr. Burgos accepted the patient for continued evaluation and management as an inpatient at [facility] in [place]. - My Orders Last 24 Hours: My Active Orders 10/04/16 15:13 UA W/MICROSCOPIC [URIN] Stat - Assessment/Plan Last 24 Hours: My Active Orders 10/04/16 15:13 UA W/MICROSCOPIC [URIN] Stat
--- NOTE | 2016-10-04 16:43 | CT ---
Clinical history: 61-year-old hypertensive 200 pound dehydrated male smoker who had a left nephrecto my in 2009 for renal cell carcinoma and subsequent history of cerebellar metastasis now complaining of abdominal and back pain. Scan technique: Volume acquisition of data from the abdomen and pelvis obtained without oral or IV c ontrast (abnormally elevated serum creatinine) while patient was lying supine on the Siemens multisl ice CT scanner [place], [place]. All data archived in the PACS system for storage, reformatting and study. Interpretation: Abnormal. 1. *Two separate suspicious exophytic cortical mass lesions arising respectively off the anterior co rtex upper pole and lateral cortex lower pole right kidney (probable malignancy). No sign of nephrol ithiasis or obstructive uropathy on the right. 2. Left nephrectomy. 3. *Large inhomogeneously dense (several large lesions) liver has the appearance of probable metasta sis. 4. Atheromatous calcification scattered along the course of normal caliber abdominal aorta and branc jaz iliac arteries. No aneurysm or dissection. 5. Gallbladder, stomach, spleen, atrophic pancreas and adrenal glands unremarkable. 6. No other abdominal or pelvic mass lesion, mesenteric or significant retroperitoneal lymphadenopat hy, inflammatory "dirty" peritoneal fat, signs of mechanical bowel obstruction, ascites or free intr aperitoneal air. 7. Demineralization but normal height and alignment of the lumbar vertebra. No sign of pathologic sk eletal lesion, thoracic or lumbar fracture or spondylolisthesis. Normal intervertebral disc spacing. CONCLUSION: Probable malignancy (x2) right kidney. Widespread metastatic disease unenhanced liver.
[2016-10-04] MEDS ORDERED: Bisacodyl 10 MG Supp RECTAL PRN (19:27)
[2016-10-04] MEDS ORDERED: Acetaminophen 325 MG Tab PO PRN (19:27)
[2016-10-04] MEDS ORDERED: Morphine 10 MG/ML Syringe IVPUSH ONE (20:12)
[2016-10-04] MEDS ORDERED: Ondansetron 4 MG/2 ML SDV IV PRN (20:14)
[2016-10-04] MEDS ORDERED: Acetaminophen 650 MG Supp RECTAL PRN (20:24)
[2016-10-04] MEDS ORDERED: Morphine PF 150 MG/30 ML PCA Syringe IV SCH (20:30)
[2016-10-04] MEDS ORDERED: Benzocaine/Docusate Sodium 20-283 MG/5 ML Enema RECTAL PRN (20:32)
[2016-10-04] MEDS: Sodium Chloride 0.9% 1,000 ML IV SCH (20:56)
[2016-10-04] MEDS: Dexamethasone 4 MG/ML SDV IV SCH (20:57)
[2016-10-05] MEDS ORDERED: Mirtazapine 15 MG Tab PO SCH (09:00)
[2016-10-05] MEDS ORDERED: Dexamethasone 4 MG Tab PO SCH (09:00)
--- NOTE | 2016-10-05 09:03 | HP ---
REASON FOR ADMISSION: Dehydration and weakness secondary to metastatic lung cancer. HISTORY OF PRESENT ILLNESS: Mr. Richardson is a 61-year-old gentleman, who lives in [place]. He was brought to the emergency room by his brother and a friend. He has a history of metastatic small cell lung cancer, stage IV. He has been unable to maintain any oral intake. The patient states that he has not been able to eat much for the last 2 weeks. It should be noted that he was actually here in the hospital from 09/23 to 09/26 for a similar admission. Workup in the Emergency Department, showed him to be somewhat dehydrated. Hemoglobin and hematocrit were elevated compared to previous studies. BUN and creatinine have also risen, and GFR has gone down. Potassium was slightly elevated at 5.2, and LFTs are abnormal. Urinalysis was unremarkable. A CT scan of the abdomen and pelvis without contrast was obtained and was significant for multiple large metastatic lesions to the liver. There were also lesions seen on the right kidney. Based on these findings and discussion with the ER provider, it was decided that he should be admitted for further management. Past medical history is significant for stage IV small cell lung cancer diagnosed in December 2015. At the time of presentation, he had metastatic disease to the brain. He was seen at the [facility] where he underwent subtotal resection of the brain metastases. He then had 5 cycles of carboplatin and etoposide. These treatments took place between January 2016 and July 2016 when they were discontinued because of disease progression in the liver and the brain. He also had palliative external beam radiation to the whole brain and cervical spine in July 2016. PAST MEDICAL HISTORY: 1. Type 2 diabetes. 2. Hypertension. 3. Dyslipidemia. 4. History of radiation esophagitis and oral thrush. 5. History of constipation. 6. Long history of tobacco abuse with a [id number] history of smoking. 7. Renal calculi and orchitis. 8. Diverticulosis of the colon. 9. Herpes zoster, February 2016. 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 PAST SURGICAL HISTORY: 1. Left nephrectomy, December 2008, for a clear cell carcinoma, grade 2 with no metastatic disease. 2. Bilateral knee surgeries. 3. Brain surgery with resection of tumors, January 2016. SOCIAL HISTORY: He is single. Has never . Has no children. 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 He worked up until several weeks ago. He is a lifelong smoker. His brother, who is 7 years younger, stated that he always remembers him smoking. He has an approximately [id number] history of smoking, having smoked up to 3 packs of cigarettes per day in the past. He has not had alcohol for the last 5 to 10 years. He lives alone in [place]. FAMILY HISTORY: He is 1 of 6 siblings. He grew up in [place]. The youngest brother in a motor vehicle accident. MEDICATIONS: Current medications are reviewed and include; 1. Dexamethasone. 2. Acetaminophen. 3. Ondansetron. 4. Mirtazapine. 5. Losartan. 6. Oxycodone. 7. Senna. He had previously been on insulin, but apparently does not need it at this time. This may be related to his significant weight loss. His admission blood sugar was 181. ALLERGIES: No known allergies. REVIEW OF SYSTEMS: He states that he just cannot eat. When he tries, he vomits most of his oral intake, including liquids. He feels that he has a lot of phlegm in his throat and this also induces the vomiting. He has lost quite a bit of weight. He said that his maximum weight was 250, now weighs 186 pounds, which is almost which is a more than 60 pounds weight loss. He denies any blood in his emesis. No blood by rectum. He states his last bowel movement was 2 weeks ago. When asked about the pain, he said that he has pain "everywhere" including the front of his torso, his back, his shoulder blades, all up and down his arms and body. He denies any recent falls or injuries. He feels cold all the time. He denies that he has had any falls. No fever. No chills. No hemoptysis. No dysuria. No change in bladder habits, but states he is quite constipated for the last 2 weeks. PHYSICAL EXAMINATION: General: On physical examination, initially he was very tired and complained of being very cold. He was able however to answer questions and provide information. He was lying curled up in bed under several blankets. Speech is coherent. He was able to answer questions correctly and coherently. He is in pain but was not in acute distress. Vital Signs: Blood pressure 147/91 on the left, 154/94 on the right, pulse 92 and regular, respiratory rate 20, oxygen saturation 98% on room air. Height 6 feet. Weight 186 pounds. HEENT: Shows sclerae to be not noticeably icteric. Mouth showed dry mucous membranes with halitosis. ENT was otherwise clear. Neck: No adenopathy. No JVDs or bruits. Chest: Showed clear but diminished bilateral breath sounds. Heart: Showed regular rate and rhythm. Abdomen: Soft and benign. There was tenderness on just mild palpation of the right upper quadrant. Extremities: Showed no edema. Neurologically: He was grossly intact. LABORATORY AND IMAGING STUDIES: CBC showed normal white count and platelets. Hemoglobin and hematocrit were 15.6 and 46. We have comparison labs from 08/04/2016, and hemoglobin and hematocrit at that time were 14 and 41. This increase in hemoglobin and hematocrit most likely represents volume contraction due to his dehydration. Chemistries; sodium 133, potassium was slightly elevated at 5.2. BUN and creatinine are 34 and 1.7, with a GFR of 41. These were compared to labs from 08/04/2016. At that time, BUN was 19, creatinine 1.3, and GFR was 56. Amylase and lipase are normal. Ammonia levels were also normal at 13. Albumin is 3.9. The remainder of the LFTs are abnormal. However, total bilirubin was 6.8, alkaline phosphatase 127, AST and ALT were [address] scan of the abdomen and pelvis without contrast was obtained. This showed probable widespread metastatic disease in the liver. There were also findings on the right kidney. We were able to find a CAT scan from 07/20/2016 performed at [facility] in [place]. Here he had the beginnings of metastatic disease in the liver and there was at least 1 mass seen on the right kidney which now may have increased and may represent metastatic disease to the right kidney as well. IMPRESSION: A 61-year-old gentleman with history of advanced small cell lung cancer with known metastatic disease to the brain at presentation. Now presents with metastatic disease to the liver and possibly the kidney. He has been unable to maintain any oral intake for the last 2 weeks and presents with signs and symptoms of dehydration and volume contraction. PLAN: 1. Mr. Richardson was admitted as an acute inpatient. His usual medications will be continued if he can tolerate them orally. His dexamethasone was changed to an intravenous route. 2. Diffuse pain. We did speak to him about treating the pain and we have opted to start him on a morphine PRESS PULLER. He did get up several hours after starting the PRESS PULLER to go to the bathroom. He had slept very well for several hours and needed to get up to empty his bladder. He was unsteady on his feet, and is a fall risk. 3. He was started on IV fluids, normal saline at 50 mL an hour. He had received a liter of normal saline in the Emergency Department as well. 4. Constipation. In the morning when he is feeling better, we will discuss using a Mini enema. 5. We will not use any pharmacological agents for VTE prophylaxis because of his advanced liver disease and deconditioned state. We will place MOHSEN hose. 6. We have ordered limited labs for the morning including BUN and creatinine with GFR as well as repeat potassium. 7. Hyperkalemia with a potassium 5.2. The reason for this is unclear. 8. Acute kidney injury, most likely secondary to dehydration. 9. He will be placed on a clear liquid diet for now until we know that he can tolerate oral intake. Mr. Richardson will need placement. The area where he lives in [place] is not covered by any hospice. He also do not have a physician in the area who could provide pain meds. Although, his family is involved with him and cares he is unclear if there are enough of them that they could provide adequate 24-hour home care. Overall his prognosis is quite poor. When he met with Dr. Mikie Call and discussed his risks and benefits they decided not to continue any type of chemotherapy. Dr. Deluna suggested hospice, but again where they are living precludes having any hospice coming. His life expectancy at that time was less than 6 months. We are now 3 months later, with advancing disease, with generalized weakness as well as dehydration and increasing METS to the liver. We will continue present management. We will speak with the swing bed coordinator in the morning regarding possible placement at [facility] if there is a bed available. Family will discuss his financial and insurance situation. I spoke to him about his code status and he wishes to be DNR/DNI. Once we have decided on placment, we will move him to comfort care. 017 04:55:35 MOD /[id number] MTDD
[2016-10-05] MEDS: Losartan 50 MG Tab PO SCH (09:20)
[2016-10-05] MEDS: Dexamethasone 4 MG/ML SDV IV SCH ×2 (09:21→20:29)
[2016-10-05] MEDS ORDERED: Sodium Polystyrene Sulfonate 15 GM/60 ML Susp 60 ML Bot PO ONE (11:30)
[2016-10-05] MEDS: Sodium Chloride 0.9% 1,000 ML IV SCH (17:09)
--- NOTE | 2016-10-06 08:34 | PN ---
DATE: 10/05/2016 SUBJECTIVE: Mr. Richardson is a 61-year-old male, who was admitted because of generalized weakness, noted to have dehydration and metastatic malignancy. The patient was started on morphine pump since admission. He has been comfortable since last night. He denies any pain. He has not had any bowel movements. He denies any chest pain. He was able to finish his jello for breakfast. 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 OBJECTIVE: Vital Signs: Blood pressure 114/80, heart rate of 78 beats per minute, respirations 20 breaths per minute, oxygen saturation 95%, and temperature 36.3. General Appearance: Sleeping, but wakes up when prompted, not in distress. CVS: Regular rate and rhythm. Abdomen: Soft. Hypoactive bowel sounds. ASSESSMENT AND PLAN: We will continue current regimen. Continue his morphine DEWATERING FILTERING SUPERVISOR pump to control the pain. He has been getting his dexamethasone. Antihypertensive was continued, losartan. His potassium is still persistently high today. We will give him a dose of Kayexalate in hope to have a bowel movement to lower K. I have met the friend and his stepmom today, and they wanted to cancel the social consult. Dr. Burgos had informed me that the patient will be discharged to [facility] tomorrow morning. We will continue to monitor patient. [facility] /[id number] MTDD
[2016-10-06] MEDS ORDERED: Morphine 10 MG/ML Syringe SUBCUT ONE (10:09)
[2016-10-06] MEDS: Dexamethasone 4 MG/ML SDV IV SCH (10:27)
[2016-10-06] MEDS: Losartan 50 MG Tab PO SCH (10:40)
[2016-10-06 10:45] VITALS: BP 103/66
--- NOTE | 2016-10-06 15:27 | DISCH ---
DISCHARGE DIAGNOSES: 1. Metastatic small cell lung cancer with mets to liver and brain and other unspecified sites. 2. Dehydration, improved. 3. Type 2 diabetes, controlled currently on diet alone. 4. Hypertension, controlled. 5. Constipation. 6. A 230-[id number]-dkel history of smoking, currently in remission. 7. History of clear cell carcinoma of the left kidney, status post nephrectomy. 8. Hyperkalemia of unclear origin. 9. Chronic kidney disease, stage III. 10.Abnormal LFTs with total bilirubin greater than 7.0. BRIEF HISTORY OF PRESENT ILLNESS: Mr. Richardson is a 61-year-old gentleman, who was diagnosed in December 2015 with metastatic small cell lung cancer, stage IV. At the time of presentation, he already had mets to the brain. Please see admission history and physical for complete details regarding treatment. He was brought to the emergency room by family on the day of admission. He had been admitted here into the hospital for a similar presentation and from 09/23 to 09/26. He has been at home. He was unable to eat or drink for the last 2 weeks. He was developing diffuse body pain and finally agreed to come to the hospital for further evaluation. On presentation, he clearly was clinically dehydrated with dry mucous membranes and decreased renal function compared to previous study. He was admitted for further evaluation and management of his dehydration and pain. PERTINENT LABS AND X-RAYS: CBC at time of admission showed normal white count and platelets. Hemoglobin and hematocrit were 15.6 and 45.9. Chemistries showed sodium 133, potassium 5.2. On recheck the next morning, potassium was 5.6, neither sample was hemolyzed. BUN and creatinine were 34 and 1.7 with a GFR of 41. Blood sugar was 181, on Decadron. LFTs were abnormal with a total bilirubin of 6.8, AST 105, ALT 342, alkaline phosphatase of 127. Amylase and lipase were normal. Ammonia level was normal at 13. Urinalysis was unremarkable. A CT scan of the abdomen and pelvis without contrast was obtained and showed widespread metastatic disease in the liver. There was also a solid lesion on the right kidney suspicious for malignancy. No other findings of concern. HOSPITAL COURSE: Mr. Richardson was admitted as an acute inpatient. He was started on IV fluids for rehydration. He received a liter in the ER and then IV fluids were continued with normal saline. For nausea and vomiting, he was given Zofran and his nausea and vomiting quickly resolved. His usual medications were continued including losartan and Remeron for sleep. He was started on a morphine WHITE WASHER pump and he did receive significant relief from this. The protocol was started at a low dose and he did well. We met with his family discussing the history and his current status. Family would like to take care of him at home, but cannot since [place] is quite distant and the area is not covered by hospice. There were not enough family members who would be available to provide 24 hour care. Mr. Richardson was also ready to be admitted to the intermediate in [place]. We spoke with [facility] and they do have a bed. He was discharged today directly to [facility] for ongoing end-of-life care. MEDICATIONS: At the intermediate will consist of: 1. Senna S one tab twice a day. 2. Ondansetron 4 mg ODT every 4 hours p.r.n. for nausea and vomiting. 3. Atropine eye drops orally every 2 hours for excess oral secretions. 4. Lorazepam 0.5 mg every 6 hour p.r.n. for anxiety. 5. We will use morphine sulfate solution and will schedule 5 mg every 4 hours and have a p.r.n. dose of 5 mg every 2 hours for breakthrough pain. DIET: He has been tolerating a soft regular diet and he stated that he would like to progress and try regular texture food. He has had some swallowing difficulties according to his family, but right now his appetite is improved and he was hydrated and we can change the diet as needed. He has had issues also with constipation and stated that he had not had bowel movement for the last 2 weeks. His stepmother said that this has been a lifelong problem for him. We have added Senna to his regimen and we will continue to work on this problem. Orders were signed for comfort care. He is DNR/DNI, with no transport to the hospital planned. IMPRESSION: A 61-year-old gentleman with history of stage IV small cell metastatic lung cancer with mets to brain and liver. PLAN: Admit to [facility] in [place] for ongoing management and end-of-life care. CONDITION AT TIME OF DISCHARGE: Stable. PROGNOSIS: Grim. MODL /[id number] MTDD
[2016-10-06] MEDS ORDERED: Mirtazapine 15 MG Tab PO SCH (21:00)
== END 2016-10-06 11:10 | DRG 861 ==
LOC: DL.ED 14:44 → DL.MS 19:27
PROVIDERS: ADMIT Internal Medicine; ATTEND Internal Medicine
DX: G89.3 Neoplasm related pain (acute) (chronic) (principal); E86.0 Dehydration; C34.90 Malignant neoplasm of unspecified part of unspecified bronchus or lung; C78.7 Secondary malignant neoplasm of liver and intrahepatic bile duct; C79.31 Secondary malignant neoplasm of brain; C79.00 Secondary malignant neoplasm of unspecified kidney and renal pelvis; K59.00 Constipation, unspecified; E87.5 Hyperkalemia; I12.9 Hypertensive chronic kidney disease with stage 1 through stage 4 chronic kidney disease, or unspecified chronic kidney disease; N17.9 Acute kidney failure, unspecified; N18.3 Chronic kidney disease, stage 3 (moderate); E11.9 Type 2 diabetes mellitus without complications; Z87.891 Personal history of nicotine dependence; E11.22 Type 2 diabetes mellitus with diabetic chronic kidney disease; Z66 Do not resuscitate; R94.5 Abnormal results of liver function studies; Z79.899 Other long term (current) drug therapy
CPT/HCPCS: 36415; 74176; 80053; 81001; 82140; 82150; 82565; 83690; 83735; 84132; 84520; 85025; 96365; 96375; 99284; A9270-GY; J1100; J2270; J2274; J2405; J7030